=== PATIENT | female | born 1975 | race Caucasian/White ===

== ENCOUNTER 2016-09-21 21:33 | Emergency (ER) | payer OTHER ==
[~2016-09-21 21:33] MED LIST: BACLOFEN20 MG; DIAZEPAM PO; LIPITOR40 MG PO; LOMOTIL TABLET1 TAB PO; MEDROL4 MG/DOSE- PO; METOPROLOL TAR25 MG PO; ORAMORPH SR30 MG PO; OXYCONTIN; PAROXETINE HCL40 MG PO; PERCOCET5/325; PHENERGAN PO; PROTONIX PO; TOPAMAX; TOPIRAMATE100 MG PO; VOLTAREN75 MG PO; ZOLOFT
== END 2016-09-21 21:46 | disposition home or self-care (01) ==
LOC: SED 21:33
DX: T50.905A Adverse effect of unspecified drugs, medicaments and biological substances, initial encounter (principal); F41.9 Anxiety disorder, unspecified; F17.200 Nicotine dependence, unspecified, uncomplicated
CPT/HCPCS: 99282

== ENCOUNTER → 2016-10-24 | Outpatient (CLI) | payer OTHER ==
[2016-10-28 14:03] LABS: ANA SCREEN Negative (Negative); SJOGREN'S SSA AB <1.0 AI (<1.0); SJOGREN'S SSB AB <1.0 AI (<1.0)
== END | disposition home or self-care (01) ==
LOC: CLAB 15:36
PROVIDERS: Dermatology
DX: L92.1 Necrobiosis lipoidica, not elsewhere classified (principal)
CPT/HCPCS: 36415; 85652; 86038; 86039; 86235